=== PATIENT | female | born 1970 | race Two or more races ===

== ENCOUNTER → 2018-09-30 | Outpatient (CLI) | payer OTHER | END | disposition home or self-care (01) | LOC: SONOGRAMA 07:57 | DX: E04.2 Nontoxic multinodular goiter (principal) ==

== ENCOUNTER 2021-10-02 08:01 | Outpatient (CLI) | payer OTHER | END 2021-10-02 08:14 | disposition home or self-care (01) | LOC: SONOGRAMA 08:01 | PROVIDERS: ATTEND Pathology Anatomic Pathology & Clinical Pathology | DX: E04.2 Nontoxic multinodular goiter (principal) ==